=== PATIENT | male | born 1930 | race Caucasian/White ===

== ENCOUNTER 2018-09-17 17:04 | Emergency (ER) | payer MEDICARE | END 2018-09-17 22:14 | disposition home or self-care (01) | LOC: ERS 17:04 | DX: R56.9 Unspecified convulsions (principal); I25.2 Old myocardial infarction; I11.0 Hypertensive heart disease with heart failure; I50.9 Heart failure, unspecified; E78.00 Pure hypercholesterolemia, unspecified; E78.6 Lipoprotein deficiency; E11.9 Type 2 diabetes mellitus without complications; Z79.899 Other long term (current) drug therapy | CPT/HCPCS: 36415; 83880; 99285 ==

== ENCOUNTER 2020-02-03 18:14 | Inpatient (IN) | payer MEDICARE, OTHER ==
[~2020-02-03 18:14] MED LIST: Calcium Chloride 1 GM/10 ML Abboject SYRINGE ONE; Dextrose 50% Abboject 50 ML SYRINGE ONE; EPINEPHrine 1 MG/10 ML Abboject SYRINGE ONE; Sodium Bicarb 50 MEQ/50 ML Abboject 8.4% SYRINGE ONE
[2020-02-03] MEDS ORDERED: Insulin Regular 300 UNITS/3 ML VIAL ONE (18:48)
[2020-02-03] MEDS ORDERED: Piperacillin/Tazobactam 4.5 GM VIAL ONE (19:09)
[2020-02-03 19:10] LABS: Hemoglobin 11.8 g/dL (14.0-18.0); Mean Corpuscular HGB CONC 33.7 g/dL (32.0-36.0); Mean Corpuscular Hemoglobin 31.5 pg (27.0-31.0); Mean Corpuscular Volume 93.3 fL (78.0-98.0); RBC Distribution Width 14.3 % (11.5-14.5); Red Blood Cell (RBC) Count 3.73 mill/uL (4.70-6.10)
[2020-02-03] MEDS ORDERED: Albuterol Sulfate 2.5 mg/3 ml Neb ONE (19:13)
--- NOTE | 2020-02-03 19:15 | RAD ---
PORTABLE CHEST: 02/03/20 HISTORY: Dyspnea. COMPARISON: 09/17/18 study. FINDINGS/IMPRESSION: Heart size appears slightly enlarged. Lungs appear clear of any infiltrative process. Endotracheal tu be is seen at the level of the clavicles. There is suboptimal inspiration. No acute findings. POS: [facility]
[2020-02-03 19:17] LABS: ALT (SGPT) 114 U/L (8-55); AST (SGOT) 168 U/L (5-34); Albumin 3.3 g/dL (3.4-4.8); Alkaline Phosphatase 92 U/L (40-110); Anion Gap 31 mmol/L (10-20); BUN (Urea Nitrogen) 45 mg/dL (8.4-25.7); Bilirubin, Total 0.5 mg/dL (0.2-1.2); Calc. Creatinine Clearance 0 mL/min (70-130); Calcium 10.5 mg/dL (7.8-10.44); Carbon Dioxide 13 mmol/L (23-31); Chloride 105 mmol/L (98-107); Estimated GFR-MDRD 26; Globulin 2.7 g/dL (2.4-3.5); Glucose 256 mg/dL (83-110); Sodium 142 mmol/L (136-145)
[2020-02-03] MEDS ORDERED: Acetaminophen 650 MG Suppository ONE (19:19)
[2020-02-03 19:22] LABS: Potassium 6.6 mmol/L (3.5-5.1)
[2020-02-03 19:25] LABS: Base Excess-Venous -11.6 mmol/L (-2.0 to 3.0); CO2 Tension (PvCO2) 41.6 mmHg (40.0-50.0); Calcium, Ionized 1.31 mmol/L (See Comments:); Chloride 108 mmol/L (98-107); Glucose 229 mg/dL (83-110); Hemoglobin - Calc 11.5 g/dL (14.0-18.0); Potassium 7.3 mmol/L (3.5-5.1); Sodium 140 mmol/L (138-145); T. Carbon Dioxide 17.3 mmol/L (22.0-28.0)
[2020-02-03 19:26] LABS: Bilirubin Negative (Negative); Blood, Urine Negative (Negative); Clarity Clear (Clear); Glucose, Urine (Dipstick) Normal (Negative); Leukocyte Negative Leu/uL (Negative); Nitrite Negative (Negative); Protein, Urine (Dipstick) Negative (Neg-Trace); Urobilinogen Normal mg/dL (Less than 2)
[2020-02-03 19:27] LABS: Actual Bicarbonate (HCO3a) 13.1 mEq/L (22-28); Analyzer IN Cardio ER; Base Excess (BEa) -15.1 mEq/L (-2.0 to +3.0); CO2 Tension 38.9 mmHg (35.0-45.0); Calcium, Ionized (arterial) 1.29 mmol/L (1.12-1.30); Carboxyhemoglobin (COHb) 0.1 gm% (0.0-3.0); Hemoglobin (Hb) 12.8 g/dL (14.0-18.0); O2 Tension (PaO2), arterial 110.1 mmHg (> 60.0); Potassium - ABG Lab 6.48 mmol/L (3.70-5.30)
[2020-02-03 19:32] LABS: pH, Arterial 7.14 (7.35-7.45)
[2020-02-03 19:33] LABS: ALV-art Gradient 554.275 (0-20); Puncture Site RRA
[2020-02-03 19:35] LABS: Band 19 % (5-11); Eosinophils 1 % (0-10); Lymphocytes 36 % (21-51); MDiff Complete? YES; Mean Platelet Volume 9.5 fL (7.4-10.4); Metamyelocyte 3 % (0-0); Myelocyte 5 % (0-0); Neutrophil 12 % (42-75); Nucleated RBC 7 % (0); Platelet Count 85 thou/uL (130-400); Platelet Morphology Comment Appears Decreased; Polychromasia MODERATE = 3-4 cells (100X) (0-2/hpf); Reactive Lymphocytes 24 % (0-10)
[2020-02-03 19:47] LABS: CKMB 37.4 ng/mL (0-6.6)
--- NOTE | 2020-02-03 19:58 | RAD ---
FOUR VIEWS OF THE RIGHT FOOT: 02/03/20 COMPARISON: None. HISTORY: Right great toe is hot, red and swollen. FINDINGS: There appears to be subtalar joint fusion with metallic anchors overlying the talus, calcaneus and cu boid. The surgical anchor associated with the cuboid is fractured. There is prominent degenerative change at the tibiotalar articulation. There is no displaced fracture or dislocation. No radiopaque foreign body or subcutaneous gas. Great toe soft tissue swelling noted. IMPRESSION: Chronic findings as detailed above. Great toe soft tissue swelling with no associated fracture, radio paque foreign body subcutaneous gas. POS: [facility]
--- NOTE | 2020-02-03 20:16 | CT ---
CT OF BRAIN PERFORMED WITHOUT CONTRAST ENHANCEMENT: 02/03/20 HISTORY: Seizures. The ventricular and cisternal system shows a definite change as compared to 09/01/19. The sulci are mo re effaced. The brain is overall somewhat more hypodense and lack of bach-white matter differentiatio n as compared to the prior exam. There is no hemorrhage or mass effect associated with these findings . The mastoid air cells and visualized sinuses are clear. The patient has been intubated. IMPRESSION: Findings that would suggest diffuse cerebral edema. POS: [facility]
--- NOTE | 2020-02-03 20:25 | PDOC.HHP ---
Hospitalist HPI - History of Present Illness Cardiac arrest History of Present Illness: H&P/ note Patient is an 89 year old male with PMH CHF, seizures, NE, DM, HLD, HTN who presented today for cardaic arrest and ROSC. He was at home and possibly fell out of wheelchair outside, seizure, down for 1-2 hours, found by , EMS called and while there with EMS he had a cardiac arrest, witnessed, ROSC obtained and had second arrest in transport, again ROSC, sent by air travel from that point, intubated, here was hypotensive, was placed on pressors with CVC placed, maxed out on levo and epi and vasopressin, dopamine drip, empiric septic shock treatment, also had NSTEMI w TnI 1.175, also had hyperkalemia, got calcium, bicarbonate, VBG w/ pH 7.3. urine, CXR negative. CT brain w/ swelling possibly anoxic brain injury. I discussed with , requested she come to hospital, also had conversation about likely end of life status given ct changes, electrolyte abnormalities and shock. discussed options including DNR vs escalating care, risks and benefits, taking patients likely wishes into account, patient believed patient would prefer DNR if he could and patient made DNR, kept intubated and he as his had just arrived to bedside. MEDICAL HISTORY Notes: Enlarged prostate, Past medical history includes cardiac history, congestive heart failure, Notes: HISTORY OF SEIZURES, NE, CHF, DIABETES, HIGH CHOLESTEROL, Past medical history includes history of hypertension,. MALE SURGICAL HISTORY R foot surgery, L hip surgery. PSYCHIATRIC HISTORY No previous psychiatric history per . SOCIAL HISTORY Patient drinks socially Patient denies drug use Patient has no smoking history per . Hospitalist ROS - Review of Systems ROS unobtainable: due to endotracheal tube - Medication Medications: see ED note, reviewed - Exam General - other findings: intuabted, sedated Eye: PERRL, anicteric sclera ENT: normocephalic atraumatic, moist mucosa Neck: supple, no JVD Heart: RRR, no murmur, no gallops, no rubs Respiratory: CTAB, no wheezes, no rales, no ronchi Gastrointestinal: soft, non-tender, non-distended Extremities: no cyanosis, no clubbing, no edema Extremities - other findings: tow wound necrotic in appearance great toe Skin: no lesions, no rashes Neurological - other findings: sedated Musculoskeletal: normal tone, no muscle wasting Psychiatric - other findings: sedated Hospitalist Results - Labs Result Diagrams: 02/03/20 18:41 02/03/20 18:41 Lab results: WBC 7.0 thou/uL (4.8-10.8) 02/03/20 18:41 Hgb 11.8 g/dL (14.0-18.0) L 02/03/20 18:41 Hct 34.8 % (42.0-52.0) L 02/03/20 18:41 MCV 93.3 fL (78.0-98.0) 02/03/20 18:41 Plt Count 85 thou/uL (130-400) L 02/03/20 18:41 Band Neuts % (Manual) 19 % (5-11) H 02/03/20 18:41 ABG pH 7.14 (7.35-7.45) L* 02/03/20 19:27 ABG pCO2 38.9 mmHg (35.0-45.0) 02/03/20 19:27 ABG pO2 110.1 mmHg (> 60.0) H 02/03/20 19:27 VBG pCO2 41.6 mmHg (40.0-50.0) 02/03/20 19:10 VBG pO2 86.7 mmHg (35.0-45.0) H 02/03/20 19:10 Sodium 142 mmol/L (136-145) 02/03/20 18:41 Potassium 6.6 mmol/L (3.5-5.1) H* 02/03/20 18:41 Chloride 105 mmol/L (98-107) 02/03/20 18:41 Carbon Dioxide 13 mmol/L (23-31) L 02/03/20 18:41 BUN 45 mg/dL (8.4-25.7) H 02/03/20 18:41 Creatinine 2.41 mg/dL (0.7-1.3) H 02/03/20 18:41 Glucose 256 mg/dL (83-110) H 02/03/20 18:41 Lactic Acid 14.1 mmol/L (0.5-2.2) H* 02/03/20 18:41 Calcium 10.5 mg/dL (7.8-10.44) H 02/03/20 18:41 Total Bilirubin 0.5 mg/dL (0.2-1.2) 02/03/20 18:41 AST 168 U/L (5-34) H 02/03/20 18:41 ALT 114 U/L (8-55) H 02/03/20 18:41 Alkaline Phosphatase 92 U/L (40-110) 02/03/20 18:41 CK-MB (CK-2) 37.4 ng/mL (0-6.6) H* 02/03/20 18:41 Troponin I 1.175 ng/mL (< 0.028) H* 02/03/20 18:41 Serum Total Protein 6.0 g/dL (5.8-8.1) 02/03/20 18:41 Albumin 3.3 g/dL (3.4-4.8) L 02/03/20 18:41 Urine Ketones Negative mg/dL (Negative) 02/03/20 19:16 Urine Blood Negative (Negative) 02/03/20 19:16 Urine Nitrite Negative (Negative) 02/03/20 19:16 Ur Leukocyte Esterase Negative Christofer/uL (Negative) 02/03/20 19:16 Additional comment: VITAL SIGNS Sat Feb 03, 2020 20:25 TAZ Aldana Victoria BP: 54/37 MAP: 42 Pulse: 106 Resp: 30 Temp: 104.2 (Criticore Temp) Pain: UTR O2 sat: 94 on (Ventilator) End-Tidal CO2: 16 Time: 02/03/2020 20:25. VITAL SIGNS Sat Feb 03, 2020 20:35 TAZ Aldana Victoria BP: 52/38 MAP: 42 Pulse: 104 Resp: 30 Temp: 104.0 (Criticore Temp) Pain: UTR O2 sat: 91 on (Ventilator) End-Tidal CO2: 15 Time: 02/03/2020 20:35. VITAL SIGNS Sat Feb 03, 2020 21:05 TAZ Aldana Victoria BP: 42/34 MAP: 36 Pulse: 129 Resp: 30 Temp: 104.0 (Criticore Temp) Pain: UTR End-Tidal CO2: 11 Time: 02/03/2020 21:05. CT: hazy opacities bilat lungs, liver cysts, atherosclerosis, non specific mass in L retroperitoneum, may be liposarcoma. incidental findings. - EKG Interpretation EK BPM diffuse ST depressions Hospitalist H&P A/P - Plan Plan: Patient is an 89 year old male with PMH CHF, seizures, NE, DM, HLD, HTN who presented today for cardaic arrest and ROSC. He was at home and possibly fell out of wheelchair outside, seizure, down for 1-2 hours, found by , EMS called and while there with EMS he had a cardiac arrest, witnessed, ROSC obtained and had second arrest in transport, again ROSC, sent by air travel from that point, intubated, here was hypotensive, was placed on pressors with CVC placed, maxed out on levo and epi and vasopressin, dopamine drip, empiric septic shock treatment, also had NSTEMI w TnI 1.175, also had hyperkalemia, got calcium, bicarbonate, VBG w/ pH 7.3. urine, CXR negative. CT brain w/ swelling possibly anoxic brain injury. I discussed with , requested she come to hospital, also had conversation about likely end of life status given ct changes, electrolyte abnormalities and shock. discussed options including DNR vs escalating care, risks and benefits, taking patients likely wishes into account, patient believed patient would prefer DNR if he could and patient made DNR, kept intubated and he as his had just arrived to bedside. # septic shock # hyperkalemia # cardiac arrest x 2 # hypoxic respiratory failure information TOD: [id number] DOD:02/02 disposition: home - [facility] home status: 67 minutes critical care time, discussed advanced care planning with inaddition to this 17 minutes DNR status as above
[2020-02-03] MEDS ORDERED: Aspirin 300 MG Suppository ONE (20:30)
[2020-02-03] MEDS ORDERED: DOPamine 400 MG/D5W 250 ML 250 ML IVPB SCH (20:30)
--- NOTE | 2020-02-03 20:36 | CT ---
CT OF CHEST, ABDOMEN, AND PELVIS 02/03/20 COMPARISON: None. HISTORY: Altered mental status. TECHNIQUE: Axial CT imaging at 5 mm intervals from the thoracic inlet through the pubic symphysis without contra st. Coronal and sagittal reformatted imaging obtained. FINDINGS: The lack of contrast media limits assessment of the viscera, bowel, vascular structures and for lymph adenopathy. There is an intraosseous access in the region of the left humeral head. Endotracheal tube and nasogastric tube in place. There is degenerative change involving the bilateral acromioclavicula r joints and glenohumeral joints. There is atherosclerotic calcification of the coronary arterial vasculature, the aortic arch, and the descending thoracic aorta. There is no pneumothorax noted on either side. There is increased density in the posterior inferior a spect of bilateral lower lobes with air bronchogram formation. This could be related to bibasilar vol ume loss, infectious pneumonitis or aspiration. No free intraperitoneal air or fluid is seen. There is a punctate hyperdense focus within the gallbladder suggesting a tiny gallstone. There are va mark hypodense lesions within the liver which includes an anterior left hepatic cyst measuring 1.5 cm on image 46. There is an additional vague nonspecific hypodensity within the left lobe of the liver m easuring 1.4 cm on image 47. There is a probable posterior right hepatic cyst on image 57 measuring 2 .1 cm. The spleen appears unremarkable. There is fatty atrophy of the pancreas. The adrenal glands and the k idneys appear grossly unremarkable. Bilateral fat containing inguinal hernias are present. There is a vascular catheter in the right femoral region. The urinary bladder is decompressed and con tains a Webster catheter. There is diverticulosis of the sigmoid colon with no evidence for diverticulitis. There is no evidenc e for bowel obstruction. No retroperitoneal lymphadenopathy is seen. There is a nonspecific mass within the mesenteric fat of the mid left abdomen just inferior and media l to the lower pole of the left kidney. This mass lesion measures 5.3 cm in AP dimension and demonstr ates overall Hounsfield units of approximately 0. This lesion appears to have soft tissue components as well as macroscopic fat. There are scattered atherosclerotic calcification of the abdominal aorta and its branches. Osseous structures of the abdomen and pelvis demonstrate postoperative hardware within the left fem oral neck and severe degenerative change of the right hip. There is multilevel lower lumbar spine dis c space narrowing and facet hypertrophy. There is also multilevel mid thoracic spine disc space narro wing with degenerative end plate change and anterior osteophyte formation. No significant degenerativ e change is noted at T7-8. IMPRESSION: 1. Hazy increased density in both lung bases with air bronchogram formation, may signify volume loss, infectious pneumonitis or aspiration. 2. Atherosclerotic disease. 3. Hypodense lesions within the liver, some of which are incompletely characterized. 4. Nonspecific mass with macroscopic fat within the retroperitoneal on the left. 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 5. Numerous additional incidental findings as detailed above. Recommend a follow-up MRI of the abdomen with and without contrast to evaluate the retroperitoneal le rosemary on the left and the hepatic lesions when the patient is able. Code T
--- NOTE | 2020-02-03 20:42 | RAD ---
FRONTAL RADIOGRAPH CHEST: 02/03/20 COMPARISON: 02/03/20 HISTORY: Intubated patient. FINDINGS: An endotracheal tube terminates over the tracheal air column at the level of the clavicular heads. Th ere is mild streaky opacity in both lung bases. IMPRESSION: Portable chest radiograph as detailed above. POS: [facility]
[2020-02-03] MEDS ORDERED: Sodium Chloride 0.9% 1,000 ML IV SCH ×2 (21:30→22:00)
[2020-02-03] MEDS ORDERED: Norepinephrine 4 MG/4 ML VIAL ONE (21:46)
[2020-02-03] MEDS ORDERED: Norepinephrine 8 MG/0.9% NS 250 ML ONE (21:47)
[2020-02-03] MEDS ORDERED: Milk Of Magnesia 30 ML UDCUP PO PRN (21:48)
[2020-02-03] MEDS ORDERED: Mag-Al 1200 mg/1200 mg/30 ML UDCUP PO PRN (21:48)
[2020-02-03] MEDS ORDERED: SYSTANE 3.5 GM TUBE EA EYE PRN (21:48)
[2020-02-03] MEDS ORDERED: Bisacodyl 5 MG TAB PO PRN (21:48)
[2020-02-03] MEDS ORDERED: Norepinephrine 8 MG/0.9% NS 250 ML IVPB PRN (21:48)
[2020-02-03] MEDS ORDERED: Ondansetron PF 4 MG/2 ML Vial IVP PRN ×2 (21:48→21:54)
[2020-02-03] MEDS ORDERED: Acetaminophen 325 MG Suppository PR PRN (21:48)
[2020-02-03] MEDS ORDERED: Insulin Regular 300 UNITS/3 ML VIAL SC PRN (21:48)
[2020-02-03] MEDS ORDERED: Phenylephrine 10 MG/NS 250 ML 250 ML IVPB PRN (21:48)
[2020-02-03] MEDS ORDERED: CCU Electrolyte Replacement 1 EACH IVPB ONE (21:48)
[2020-02-03] MEDS ORDERED: Bisacodyl 10 MG SUPP PR PRN (21:48)
[2020-02-03] MEDS ORDERED: Acetaminophen 650 MG/20.3 ML UDCUP PO PRN (21:48)
[2020-02-03] MEDS ORDERED: Potassium Chloride 20 MEQ TAB PO PRN (21:54)
[2020-02-03] MEDS ORDERED: Potassium Phosphate 9 MMOL in Sodium Chloride 0.9% 100 ML IVPB PRN (21:54)
[2020-02-03] MEDS ORDERED: PHOS-NAK 1 PKT PACK PO PRN ×2 (21:54)
[2020-02-03] MEDS ORDERED: Acetaminophen 325 MG TAB PO PRN (21:54)
[2020-02-03] MEDS ORDERED: CCU ELECTROLYTE REPLACEMENT PROTOCOL FS PRN (21:54)
[2020-02-03] MEDS ORDERED: Labetalol HCl 100 MG/20 ML VIAL SLOW IVP PRN (21:54)
[2020-02-03] MEDS ORDERED: Magnesium 2 GM/50 ML 2 GM in Premix Bag 1 BAG IVPB PRN (21:54)
[2020-02-03] MEDS ORDERED: Magnesium Oxide 400 MG TAB PO PRN ×2 (21:54)
[2020-02-03] MEDS ORDERED: Promethazine HCl 12.5 MG in Sodium Chloride 0.9% 50 ML IVPB PRN (21:54)
[2020-02-03] MEDS ORDERED: Potassium Chloride 40 MEQ in Premix Bag 1 BAG IVPB PRN (21:54)
[2020-02-03] MEDS ORDERED: Potassium Phosphate 12 MMOL in Sodium Chloride 0.9% 250 ML 250 ML IV PRN (21:54)
[2020-02-03] MEDS ORDERED: Guaifenesin DM 100-10/5 ML UDCUP PO PRN (21:54)
[2020-02-03] MEDS ORDERED: cloNIDine 0.1 MG TAB PO PRN (21:54)
[2020-02-03] MEDS ORDERED: Potassium Chloride 40 MEQ in Sodium Chloride 0.9% 250 ML 250 ML IVPB PRN (21:54)
[2020-02-03] MEDS ORDERED: hydrALAZINE 20 MG/ML VIAL SLOW IVP PRN (21:54)
[2020-02-03] MEDS ORDERED: Potassium Phosphate 15 MMOL in Sodium Chloride 0.9% 250 ML 250 ML IV PRN (21:54)
[2020-02-03] MEDS ORDERED: Ventilator Sedation Protocol 1 EACH FS SCH (22:00)
[2020-02-03 22:07] VITALS: BMI 32.5
[2020-02-03] MEDS ORDERED: Morphine 2 MG/ML SYRINGE SLOW IVP PRN (22:27)
[2020-02-03] MEDS ORDERED: Propofol 1,000 MG/100 ML VIAL IV PRN (22:27)
[2020-02-03] MEDS ORDERED: fentaNYL Citrate/PF 2,000 MCG in Sodium Chloride 0.9% 60 ML IV SCH (22:27)
[2020-02-03] MEDS ORDERED: Fentanyl BOLUS 250 ML IVPB PRN (22:27)
[2020-02-03] MEDS ORDERED: DISCONTINUE PREVIOUS NARCOTIC PAIN MEDICATIONS AND BENZODIAZEPINES FS SCH (22:27)
[2020-02-03] MEDS ORDERED: Lorazepam 2 MG/ML VIAL SLOW IVP PRN (22:27)
[2020-02-03] MEDS ORDERED: Propofol BOLUS 1,000 MG/100 ML VIAL IV PRN (22:27)
[2020-02-03 22:48] LABS: CKMB 153.7 ng/mL (0-6.6); Lactic Acid 14.7 mmol/L (0.5-2.2)
[2020-02-03 22:57] VITALS: TEMP 98.4
[2020-02-03] MEDS ORDERED: Piperacillin/Tazobactam 3.375 GM in Sodium Chloride 0.9% 100 ML IVPB SCH (23:59)
[2020-02-04] MEDS ORDERED: Albuterol Sulfate 2.5 mg/3 ml Neb NEB SCH (01:00)
[2020-02-04] MEDS ORDERED: Famotidine/PF 20 mg/2ml Vial SLOW IVP SCH (09:00)
[2020-02-04] MEDS ORDERED: Famotidine 20 MG TAB PO SCH (09:00)
[2020-02-04] MEDS ORDERED: Polyethylene Glycol 3350 17 GM Packet PO SCH (09:00)
[2020-02-04] MEDS ORDERED: Prevnar 13-Val Conj/PF 0.5 ML SYRINGE IM ONE (09:00)
[2020-02-04 15:23] LABS: SARS-CoV-2 MS2 Positive; SARS-CoV-2 N Gene Negative; SARS-CoV-2 S Gene Negative; SARS-CoV-2 orf1ab Negative
[2020-02-04] MEDS ORDERED: Vancomycin 1 GM in Premix Bag 1 BAG IVPB SCH (20:00)
== END 2020-02-03 23:05 | disposition expired | DRG 871 ==
LOC: ERS 18:14 → CCU 19:51
PROVIDERS: ADMIT Internal Medicine; ATTEND Internal Medicine
PROC: 5A12012 Performance of Cardiac Output, Single, Manual (ICD-10-PCS; principal; 2020-02-03)
DX: A41.9 Sepsis, unspecified organism (principal); R40.2312 Coma scale, best motor response, none, at arrival to emergency department; R40.2212 Coma scale, best verbal response, none, at arrival to emergency department; R40.2112 Coma scale, eyes open, never, at arrival to emergency department; R65.21 Severe sepsis with septic shock; J96.91 Respiratory failure, unspecified with hypoxia; I95.9 Hypotension, unspecified; N40.0 Benign prostatic hyperplasia without lower urinary tract symptoms; I46.9 Cardiac arrest, cause unspecified; E78.5 Hyperlipidemia, unspecified; Z66 Do not resuscitate; E87.5 Hyperkalemia; E11.9 Type 2 diabetes mellitus without complications; E78.00 Pure hypercholesterolemia, unspecified; I11.0 Hypertensive heart disease with heart failure; I25.2 Old myocardial infarction; Z79.4 Long term (current) use of insulin
CPT/HCPCS: 36416; 36556; 51702; 70450; 71045; 71250; 74177; 80053; 81003; 82330; 82553; 82803; 82805; 83605; 84484; 85025; 85060; 87040; 87086; 87635; 93005; 94002; 94644; 96365; 96366; 96368; 96375; 96376; 99292; J0171; J1265; J1815; J2543; J3370; J7030; J7611; U0003